=== PATIENT | male | born 1955 | race Caucasian/White ===

== ENCOUNTER 2020-12-06 08:52 | Day surgery (SDC) | payer MEDICARE, BC ==
--- NOTE | 2020-12-05 12:44 | NUR ---
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
[~2020-12-06] VITALS: Ht 185.4 cm; Wt 86.4 kg
[~2020-12-06 08:52] MED LIST: HYDROCODONE-APA1 TAB PO; SOMA350 MG PO; XANAX1 MG PO
[2020-12-06 09:16] LABS: HEMATOCRIT 45.3 % (42.0-54.0); HEMOGLOBIN 15.5 g/dL (13.5-17.5); LYMPHOCYTE ABS# 1.42 10x3/uL (1.32-3.57); MCH 30.3 pg (26.0-34.0); MCHC 34.2 g/dL (31.0-37.0); MCV 88.6 fL (80.0-100.0); MEAN PLATELET VOLUME 10.4 fL (7.4-10.4); NEUTROPHIL ABS# 0.99 10x3/uL (1.78-5.38); PLATELET COUNT 155 10x3/uL (130-400); RBC 5.11 10x6/uL (4.20-6.10); WBC 2.8 10x3/uL (4.8-10.8)
[2020-12-06 09:19] LABS: ANION GAP 8.7 mmol/L (8-16); CALCIUM 9.1 mg/dL (8.5-10.1); CARBON DIOXIDE 31.2 mmol/L (21.0-32.0); CREATININE - SERUM 1.1 mg/dL (0.6-1.3); POTASSIUM - SERUM 3.9 mmol/L (3.5-5.1)
[2020-12-06 09:27] LABS: APTT 28.9 SECONDS (22.8-39.4); INR 1.12 (0.85-1.17); PROTIME 13.3 SECONDS (11.6-15.0)
[2020-12-06] MEDS ORDERED: MULTI-DAY VITAM1 TAB (09:51)
[2020-12-06 09:55] VITALS: Ht 185.4 cm; Wt 86.4 kg
[2020-12-06 13:18] LABS: EOSINOPHILS 3 % (0-7); LYMPHOCYTES 27 % (15-50); MONOCYTES 10 % (2-11); NEUTROPHILS 60 % (40-80); PLATELET ESTIMATE NORMAL
--- NOTE | 2020-12-06 14:23 | NUR ---
1405 DRESSED, AWAKE & ALERT. PROVIDED WITH DISCHARGE INFORMATION INCLUDING: MED REC., DISCHARGE INSTRUCTIONS FOR CT GUIDED BIOPSY, & [facility] OPS DISCHARGE INSTRUCTIONS. PT & VOICED UNDERSTANDING. TO PRIVATE CAR PER WHEELCHAIR BY THIS NURSE. HOME WITH MRS. [facility]. Marian LAL R.N.
== END 2020-12-06 14:05 | disposition home or self-care (01) ==
LOC: D.SP 08:52 → D.CT 11:00 → D.SP 14:05
PROVIDERS: Radiology Diagnostic Radiology; ATTEND Internal Medicine Hematology & Oncology
DX: D70.8 Other neutropenia (principal); E78.2 Mixed hyperlipidemia; E55.9 Vitamin D deficiency, unspecified; G47.33 Obstructive sleep apnea (adult) (pediatric); E78.00 Pure hypercholesterolemia, unspecified; I10 Essential (primary) hypertension; R79.89 Other specified abnormal findings of blood chemistry; F41.1 Generalized anxiety disorder